=== PATIENT | female | born 1945 | race Caucasian/White ===

== ENCOUNTER 2020-01-03 09:17 | Day surgery (SDC) | payer MEDICARE, OTHER ==
[2019-12-30 08:52] VITALS: BMI 23.0
[~2020-01-03 09:17] MED LIST: LIDOCAINE 1% (10MG/ML) FOR IV START INTRADERMA PRN; MIDAZOLAM 2 MG/2 ML VIAL IV PRN
[2020-01-03 09:37] VITALS: RESP 16; TEMP 97.1
[2020-01-03] MEDS: LACTATED RINGERS 1,000 ML IV SCH ×2 (09:45→11:18)
[2020-01-03] MEDS ORDERED: PROPOFOL 10 MG/ML 20 ML VIAL IV ONE (11:17)
[2020-01-03] MEDS ORDERED: LIDOCAINE 1% INJ 10MG/ML (20 ML MDV) ONE (11:17)
--- NOTE | 2020-01-03 11:22 | P.GSHP ---
History of Present Illness H&P Date: 01/03/20 Chief Complaint: history of colon cancer 74-year-old female here today for colonoscopy. Last colonoscopy 4 years ago. Patient with personal history of colon cancer. Underwent previous right colectomy. No bowel complaints. 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 , maddison CATARACT SX Past Anesthesia/Blood Transfusion Reactions: No Reported Reaction Additional Past Anesthesia/Blood Transfusion Reaction / Comment(s): HX OF BLOOD TRANSFUSION X2 (NO REACTION) Smoking Status: Never smoker - Past Family History Father Family Medical History: Cancer Mother Family Medical History: No Reported History Medications and Allergies Home Medications Medication Instructions Recorded Confirmed Type Multivitamins, Thera [Multivitamin] 1 tab PO DAILY 06/11/15 01/03/20 History Metoprolol Succinate [Toprol XL] 50 mg PO DAILY 12/30/19 01/03/20 History Allergies Allergy/AdvReac Type Severity Reaction Status Date / Time warfarin sodium AdvReac Severe EXTREMELY Verified 01/03/20 09:42 [From Coumadin] HIGH LAB TEST Surgical - Exam Vital Signs Temp Pulse Resp BP Pulse Ox 97.1 F L 71 16 166/88 98 01/03/20 09:27 01/03/20 09:27 01/03/20 09:27 01/03/20 09:27 01/03/20 09:27 Physical exam: General: Well-developed, well-nourished HEENT: Normocephalic, sclerae nonicteric Abdomen: Nontender, nondistended Extremities: No edema Neuro: Alert and oriented Assessment and Plan (1) Colon cancer screening Narrative/Plan: Will proceed with colonoscopy at this time. Current Visit: Yes Status: Acute Code(s): Z12.11 - ENCOUNTER FOR SCREENING FOR MALIGNANT NEOPLASM OF COLON SNOMED Code(s): 257134202
--- NOTE | 2020-01-03 11:35 | P.PCN ---
Date of Procedure: 01/03/20 Procedure(s) Performed: PREOPERATIVE DIAGNOSIS: colon cancer screening, history of colon cancer POSTOPERATIVE DIAGNOSIS: diverticulosis PROCEDURE: Colonoscopy ANESTHESIA: MAC SURGEON: Irving Rizo M.D. SPECIMENS: none ENDOSCOPIC PROCEDURE: The patient was placed on the endoscopy table in the left decubitus position. The Olympus colonoscope was inserted into the anus and passed under direct visualization to the previous right colonic anastomosis. The anastomosis was widely patent. From that point the scope was slowly withdrawn. There were no abnormalities noted throughout the transverse, descending, sigmoid and rectum. There was mild left-sided. Digital rectal examination was normal. The patient was taken to the recovery room in stable condition per anesthesia guidelines. RECOMMENDATIONS: resume diet. Follow-up colonoscopy 5 years.
[2020-01-03 12:07] VITALS: BP 117/77; PULSE 69
== END 2020-01-03 12:15 | disposition home or self-care (01) ==
LOC: ORWHC2ENDO 09:17
PROVIDERS: ATTEND Surgery
DX: Z12.11 Encounter for screening for malignant neoplasm of colon (principal); K57.30 Diverticulosis of large intestine without perforation or abscess without bleeding; Z85.038 Personal history of other malignant neoplasm of large intestine; I10 Essential (primary) hypertension; G43.909 Migraine, unspecified, not intractable, without status migrainosus; Z88.8 Allergy status to other drugs, medicaments and biological substances; Z79.899 Other long term (current) drug therapy; Z90.49 Acquired absence of other specified parts of digestive tract; Z90.710 Acquired absence of both cervix and uterus; Z98.41 Cataract extraction status, right eye; Z98.42 Cataract extraction status, left eye; Z98.890 Other specified postprocedural states; Z85.42 Personal history of malignant neoplasm of other parts of uterus; Z80.9 Family history of malignant neoplasm, unspecified
CPT/HCPCS: G0105; J2001; J2704; 45378